=== PATIENT | female | born 1990 | race Caucasian/White ===

== ENCOUNTER 2018-09-06 23:37 | Inpatient (IN) | payer MEDICARE ==
[2018-09-07] MEDS ORDERED: SODIUM CHLORIDE 0.9% 500 ML INFUS.BAG IV ONE (01:29)
--- NOTE | 2018-09-07 01:41 | PDOC ---
Attending Attestation - HPI HPI: 09/07/18 01:44 The patient is a 28 year old female,A0, IUD 3 years ago, with no significant past medical history, who presents to the emergency department s/p syncopal episode around 7:30PM after having 5 days of heavy vaginal bleeding and new onset of nausea, vomiting and abdominal pain this morning. She reports four episodes of NBNB emesis this morning with associated nausea and abdominal pain. She reports abdominal pain is gas-like, intermittent and alleviated with tarah seltzer. She states she fainted around 7:30PM at the grocery store, but reports a customer assisted her to the ground. She states she saw black, but was aware that someone assisted her to the floor. She states it is not usual for her to bleed as heavy as she has been since her IUD placement 3 years ago. The patient denies chest pain, shortness of breath, headache and dizziness. The patient denies fever, chills, diarrhea and constipation. The patient denies dysuria, frequency, urgency and hematuria. Allergies: NKDA Past surgical history: cholecystectomy, gastric sleeve - Physicial Exam PE: 09/07/18 01:44 GENERAL: Awake, alert, and fully oriented, in no acute distress HEAD: No signs of trauma EYES: PERRLA, EOMI, sclera anicteric, conjunctiva clear ENT: Auricles normal inspection, hearing grossly normal, nares patent, oropharynx clear without exudates. Moist mucosa NECK: Normal ROM, supple, no lymphadenopathy, JVD, or masses LUNGS: Breath sounds equal, clear to auscultation bilaterally. No wheezes, and no crackles HEART: Regular rate and rhythm, normal S1 and S2, no murmurs, rubs or gallops ABDOMEN: Soft, nontender, normoactive bowel sounds. No guarding, no rebound. No masses EXTREMITIES: Normal range of motion, no edema. No clubbing or cyanosis. No cords, erythema, or tenderness NEUROLOGICAL: Cranial nerves II through XII grossly intact. Normal speech, normal gait SKIN: Warm, Dry, normal turgor, no rashes or lesions noted. PELVIC: (+) External genitalia normal without lesions. Vaginal vault with minimal blood. Cervix is closed. No cervical motion tenderness. Adnexa are nontender and without masses. - Medical Decision Making 09/07/18 01:44 Documentation prepared by Fatou Wiseman, acting as medical cost consultant for Jocelin Vieira MD <Fatou Wiseman - Last Filed: 09/07/18 01:44> - Resident Resident Name: Yesi Méndez - ED Attending Attestation I have performed the following: I have examined & evaluated the patient, The case was reviewed & discussed with the resident, I agree w/resident's findings & plan - Medical Decision Making 09/07/18 02:21 Pt has an ectopic in the right ovary She has complex free fluid in her pelvis... 09/07/18 02:25 Dr. Corrales is aware. We will admit to INSTRUMENT LENS INSPECTOR; she will be kept NPO and she will get a 4 hr CBC repeat. <Jocelin Vieira - Last Filed: 09/07/18 02:26>
[2018-09-07 01:43] LABS: BASO % 0.3 % (0-2.0); EOS % 1.3 % (0-4.5); HEMATOCRIT 33.7 % (32.4-45.2); HEMOGLOBIN 11.2 GM/dL (10.7-15.3); MCH 30.3 pg (25.7-33.7); MCHC 33.4 g/dl (32.0-36.0); MEAN CELL VOLUME 90.8 fl (80-96); MEAN PLT VOLUME 7.2 fl (7.5-11.1); MONO % 5.9 % (3.8-10.2); NEUT % 71.5 % (42.8-82.8); PLATELET COUNT 268 K/MM3 (134-434); RDW 12.1 % (11.6-15.6); WHITE BLOOD COUNT 12.8 K/mm3 (4.0-10.0)
--- NOTE | 2018-09-07 02:23 | PDOC ---
History of Present Illness <Jocelin Vieira - Last Filed: 09/07/18 02:24> - General History Source: Patient Exam Limitations: No Limitations - History of Present Illness Initial Comments: 09/07/18 01:41 28 year old woman A0 with IUD placed 3 years ago. The patient presents after home positive test this AM, diffuse abdominal "gas-like" pain rated 5-7/10, 4 episodes of NBNB vomiting and syncopal episode at 1930 while at the grocery store, denies any head trauma and notes that another woman in the store helped her to the ground. The patient reports that since her IUD placement she has had vaginal spotting occurring every 1-2months however 2 weeks ago she had heavy vaginal bleeding for 5 days. The patient denies chest pain, shortness of breath, headache and dizziness. The patient denies fever, chills, diarrhea and constipation. The patient denies dysuria, frequency, urgency and hematuria. <Yesi Méndez - Last Filed: 09/07/18 02:47> - General Chief Complaint: Vaginal Bleeding Stated Complaint: VAGINAL BLEEDING PREG, SYNCOPE Time Seen by Provider: 09/07/18 00:25 Past History <Jocelin Vieira - Last Filed: 09/07/18 02:24> - Past Medical History COPD: No - Suicide/Smoking/Psychosocial Hx Smoking History: Never smoked Have you smoked in the past 12 months: No Information on smoking cessation initiated: No Hx Alcohol Use: No Drug/Substance Use Hx: No <Yesi Méndez - Last Filed: 09/07/18 02:47> - Past Medical History Allergies/Adverse Reactions: Allergies Allergy/AdvReac Type Severity Reaction Status Date / Time No Known Allergies Allergy Verified 09/07/18 02:33 Review of Systems - Review of Systems Able to Perform ROS?: Yes Is the patient limited Bhutanese proficient: No Constitutional: No: Chills, Diaphoresis, Fever Respiratory: No: Cough, Orthopnea, Shortness of Breath Cardiac (ROS): No: Chest Pain, Palpitations ABD/GI: Yes: Nausea, Vomiting. No: Constipated, Diarrhea : No: Burning, Dysuria, Hematuria Musculoskeletal: No: Back Pain, Muscle Pain Neurological: No: Headache, Numbness, Tingling <Yesi Méndez - Last Filed: 09/07/18 02:47> *Physical Exam - Vital Signs Last Vital Signs Temp Pulse Resp BP Pulse Ox 98.4 F 76 18 99/48 L 99 09/06/18 23:55 09/06/18 23:55 18 23:55 09/06/18 23:55 09/06/18 23:55 <Jocelin Vieira - Last Filed: 09/07/18 02:24> - Vital Signs Last Vital Signs Temp Pulse Resp BP Pulse Ox 98.4 F 76 18 99/48 L 99 09/06/18 23:55 09/06/18 23:55 09/06/18 23:55 09/06/18 23:55 09/06/18 23:55 - Physical Exam Comments: 09/07/18 02:42 GENERAL: Awake, alert, and fully oriented, in no acute distress HEAD: No signs of trauma, normocephalic, atraumatic EYES:EOMI, sclera anicteric, conjunctiva clear ENT: oropharynx clear without exudates. Moist mucosa NECK: Normal ROM, supple LUNGS: No distress, speaks full sentences, clear to auscultation bilaterally HEART: Regular rate and rhythm, normal S1 and S2, no murmurs, rubs or gallops, peripheral pulses normal and equal bilaterally. ABDOMEN: Soft, + RUQ guarding normoactive bowel sounds. No guarding, no rebound. No masses BACK: No CVA tenderness EXTREMITIES : Normal inspection, Normal range of motion, no edema. No clubbing or cyanosis. NEUROLOGICAL: Cranial nerves II through XII grossly intact. Normal speech, no focal sensorimotor deficits SKIN: Warm, Dry, normal turgor, no rashes or lesions noted PELVIC: closed os, no blood in the vaginal canal, no cervical motion tenderness <Yesi Méndez - Last Filed: 09/07/18 02:47> Moderate Sedation - Procedure Monitoring Vital Signs: Procedure Monitoring Vital Signs Temperature 98.4 F 09/06/18 23:55 Pulse Rate 76 09/06/18 23:55 Respiratory Rate 18 09/06/18 23:55 Blood Pressure 99/48 L 09/06/18 23:55 O2 Sat by Pulse Oximetry (%) 99 09/06/18 23:55 <Jocelin Vieira - Last Filed: 09/07/18 02:24> - Procedure Monitoring Vital Signs: Procedure Monitoring Vital Signs Temperature 98.4 F 09/06/18 23:55 Pulse Rate 76 09/06/18 23:55 Respiratory Rate 18 09/06/18 23:55 Blood Pressure 99/48 L 09/06/18 23:55 O2 Sat by Pulse Oximetry (%) 99 09/06/18 23:55 <Yesi Méndez - Last Filed: 09/07/18 02:47> ED Treatment Course - LABORATORY CBC & Chemistry Diagram: 09/07/18 01:20 09/07/18 01:20 - ADDITIONAL ORDERS Additional order review: 09/07/18 01:20 RBC 3.70 MCV 90.8 MCHC 33.4 RDW 12.1 MPV 7.2 L Neutrophils % 71.5 Lymphocytes % 21.0 Monocytes % 5.9 Eosinophils % 1.3 Basophils % 0.3 <Jocelin Vieira - Last Filed: 09/07/18 02:24> - LABORATORY CBC & Chemistry Diagram: 09/07/18 01:20 09/07/18 01:20 - RADIOLOGY Radiology Studies Ordered: Category Date Time Status TRANSVAGINAL US PREG [US] Stat Ultrasound 09/07/18 01:18 Ordered <Yesi Méndez - Last Filed: 09/07/18 02:47> Medical Decision Making - Medical Decision Making 09/07/18 02:23 28 year old woman A0 with IUD placed 3 years ago. The patient presents after home positive test this AM, diffuse abdominal "gas-like" pain rated 5-7/10, 4 episodes of NBNB vomiting and syncopal episode at 1930 while at the grocery store, denies any head trauma and notes that another woman in the store helped her to the ground. The patient reports that since her IUD placement she has had vaginal spotting occurring every 1-2months however 2 weeks ago she had heavy vaginal bleeding for 5 days. The patient denies chest pain, shortness of breath, headache and dizziness. The patient denies fever, chills, diarrhea and constipation. The patient denies dysuria, frequency, urgency and hematuria. ED Course: Consider ectopic vs IUP vs appendicitis vs gastroenteritis cbc, cmp, t&S, PTT, INR, TVUS, ua,ucx TVUS findings: R sided ectopic, with complex free fluid GRETA Holly made aware of patient, will repeat 4 hour CBC 09/07/18 02:46 [place] [id number] <Yesi Méndez - Last Filed: 09/07/18 02:47> *DC/Admit/Observation/Transfer - Discharge Dispostion Decision to Admit order: Yes <Jocelin Vieira - Last Filed: 09/07/18 02:24> <Yesi Méndez - Last Filed: 09/07/18 02:47> Diagnosis at time of Disposition: Ectopic of ovary - Discharge Dispostion Condition at time of disposition: Guarded
[2018-09-07 02:40] LABS: ALBUMIN 3.1 g/dl (3.4-5.0); ALK PHOS 37 U/L (45-117); ANION GAP 7 MMOL/L (8-16); BILIRUBIN,TOTAL 0.7 mg/dL (0.2-1); BLOOD UREA NITROGEN 10 mg/dL (7-18); CALCIUM 8.1 mg/dL (8.5-10.1); CHLORIDE 105 mmol/L (98-107); CO2 25 mmol/L (21-32); CREATININE 0.5 mg/dL (0.55-1.3); GLUCOSE,RANDOM 92 mg/dL (74-106); POTASSIUM 3.8 mmol/L (3.5-5.1); SGOT/AST 11 U/L (15-37); SGPT/ALT 17 U/L (13-61); SODIUM 137 mmol/L (136-145); TOT PROT 5.8 g/dl (6.4-8.2)
[2018-09-07 02:58] VITALS: BMI 22.6
[2018-09-07 07:19] LABS: BASO % 0.1 % (0-2.0); EOS % 2.3 % (0-4.5); HEMATOCRIT 29.7 % (32.4-45.2); HEMOGLOBIN 9.9 GM/dL (10.7-15.3); LYMPH % 28.9 % (8-40); MCH 30.4 pg (25.7-33.7); MCHC 33.3 g/dl (32.0-36.0); MEAN CELL VOLUME 91.3 fl (80-96); MEAN PLT VOLUME 7.4 fl (7.5-11.1); MONO % 6.6 % (3.8-10.2); NEUT % 62.1 % (42.8-82.8); PLATELET COUNT 235 K/MM3 (134-434); RBC 3.26 M/mm3 (3.60-5.2); RDW 11.8 % (11.6-15.6); WHITE BLOOD COUNT 8.7 K/mm3 (4.0-10.0)
[2018-09-07 07:41] LABS: INR 1.19 (0.83-1.09); PROTHROMBIN TIME (PATIENT) 14.1 SEC (9.7-13.0)
--- NOTE | 2018-09-07 07:53 | HP ---
Past Medical History - Primary Care Physician PCP:: Yordan Corrales - Admission Chief Complaint: abdominal pain, r/o ectopic pregnanvy History of Present Illness: 28 yo f g 2 p1001 with 1 previous c/s , irregular periods , has iud for 3 years , c/o vaginal bleeding 1 week ago for 5 days , no bleeding now, had one episode of fainting like spell yesterday with gasy type pain , now has no pain, no dizziness , hcg 31ooo range, no iup , complex adenexa mass History Source: Patient Limitations to Obtaining History: No Limitations - Past Medical History ...: 1 ...Para: 1 Additional OB History: c/s - Past Surgical History Past Surgical History: Yes: Hx Myomectomy: No Hx Transabdominal Cerclage: No - Smoking History Smoking history: Never smoked Have you smoked in the past 12 months: No - Alcohol/Substance Use Hx Alcohol Use: No - Social History Usual Living Arrangement: Yes: With Spouse History of Recent Travel: No Home Medications - Allergies Allergies/Adverse Reactions: Allergies Allergy/AdvReac Type Severity Reaction Status Date / Time No Known Allergies Allergy Verified 09/07/18 02:33 Review of Systems - Review of Systems Constitutional: reports: No Symptoms Eyes: reports: No Symptoms HENT: reports: No Symptoms Neck: reports: No Symptoms Cardiovascular: reports: No Symptoms Respiratory: reports: No Symptoms Gastrointestinal: reports: Abdominal Pain Genitourinary: reports: No Symptoms Breasts: reports: No Symptoms Reported Musculoskeletal: reports: No Symptoms Integumentary: reports: No Symptoms Neurological: reports: No Symptoms Endocrine: reports: No Symptoms Hematology/Lymphatic: reports: No Symptoms Psychiatric: reports: No Symptoms Physical Exam-PIPE LINER Vital Signs: Vital Signs Temperature 98.4 F 09/07/18 04:44 Pulse Rate 64 09/07/18 04:44 Respiratory Rate 20 09/07/18 04:44 Blood Pressure 95/54 L 09/07/18 04:44 O2 Sat by Pulse Oximetry (%) 100 09/07/18 04:39 Constitutional: Yes: Well Nourished, No Distress, Calm Eyes: Yes: WNL, Conjunctiva Clear, EOM Intact HENT: Yes: WNL, Atraumatic, Normocephalic Neck: Yes: WNL, Supple, Trachea Midline Cardiovascular: Yes: WNL, Regular Rate and Rhythm Respiratory: Yes: WNL, Regular, CTA Bilaterally Gastrointestinal: Yes: WNL ...Rectal Exam: Yes: WNL Renal/: Yes: WNL External Genitalia: Yes: Normal Vaginal Exam: Yes: Normal, Other (iud string seen) Cervix: Yes: Normal Uterus: Yes: Normal Adnexa: Normal: Left, Right Breast(s): Yes: WNL Musculoskeletal: Yes: WNL Extremities: Yes: WNL Edema: No Integumentary: Yes: WNL Neurological: Yes: WNL, Alert, Oriented ...Motor Strength: WNL Psychiatric: Yes: WNL, Alert, Oriented Labs: CBC, BMP 09/07/18 06:50 09/07/18 01:20 Problem List - Problem (1) Tubal ectopic Code(s): O00.109 - UNSPECIFIED TUBAL WITHOUT INTRAUTERINE (2) Ectopic of ovary Code(s): O00.209 - UNSPECIFIED OVARIAN WITHOUT INTRAUTERINE Assessment/Plan possible tubal , patient asymptomatic now , will repeat hcg, cbc , if drop in cbc further advised laparoscopy, possible salpingectomy, iud removal , and all necessary procedure, risks of procedure discussed with patient and her
[2018-09-07 09:05] LABS: URINE APPEARANCE CLEAR; URINE BILIRUBIN NEGATIVE (<2.0 mg/dL); URINE COLOR LTYELLOW; URINE GLUCOSE (UA) NEGATIVE (NEGATIVE); URINE KETONE TRACE (NEGATIVE); URINE LEUK ESTERASE NEGATIVE (NEGATIVE); URINE NITRITE NEGATIVE (NEGATIVE); URINE PROTEIN NEGATIVE (NEGATIVE); URINE UROBILINOGEN NEGATIVE mg/dL (0.2-1.0)
[2018-09-07] MEDS ORDERED: BUPIVACAINE HCL/PF 0.5% (5MG/ML) 10 ML VIAL ONE (13:06)
[2018-09-07] MEDS ORDERED: ONDANSETRON 4 MG/2 ML VIAL IVPUSH PRN ×2 (13:13→14:59)
[2018-09-07] MEDS ORDERED: LACTATED RINGERS SOLUTION 1,000 ML IV SCH (13:15)
[2018-09-07] MEDS ORDERED: PROPOFOL 20 ML ONE (13:22)
[2018-09-07] MEDS ORDERED: MIDAZOLAM HCL 2 MG/2 ML SINGLE DOSE VIAL ONE (13:22)
[2018-09-07] MEDS ORDERED: SUCCINYLCHOLINE CHLORIDE 200 MG/10 ML VIAL ONE (13:22)
[2018-09-07] MEDS ORDERED: ceFAZolin SODIUM 1 GM VIAL IVPB ONE (13:45)
[2018-09-07] MEDS ORDERED: ceFAZolin SODIUM 1 GM VIAL ONE (13:47)
[2018-09-07] MEDS ORDERED: DEXAMETHASONE SOD PHOSPHATE 4 MG/1 ML VIAL ONE (13:52)
[2018-09-07] MEDS ORDERED: DESFLURANE GAS 240 ML BOTTLE IH ONE (13:53)
[2018-09-07] MEDS ORDERED: KETOROLAC TROMETHAMINE 30 MG/1 ML VIAL ONE (14:17)
[2018-09-07] MEDS ORDERED: BUPIVACAINE HCL/PF (5 MG/ML) 30 ML VIAL IJ ONE (14:54)
[2018-09-07] MEDS ORDERED: oxyCODONE HCL 5 MG TABLET PO PRN (14:59)
[2018-09-07] MEDS ORDERED: IBUPROFEN 600 MG TABLET (FP) PO PRN (14:59)
[2018-09-07] MEDS ORDERED: IBUPROFEN 800 MG/8 ML IJ IVPB PRN (14:59)
[2018-09-07] MEDS ORDERED: ELECTROLYTE-148 SOLN 1,000 ML IV SCH (15:15)
[2018-09-07] MEDS ORDERED: ACETAMINOPHEN 325 MG TABLET (FP) PO PRN (15:24)
--- NOTE | 2018-09-07 15:25 | OP ---
Operative Note - Note: Operative Date: 09/07/18 Pre-Operative Diagnosis: Tubal Operation: Laparoscopic right salpingectomy Findings: as dictated Implants: none Post-Operative Diagnosis: Same as Pre-op Surgeon: Yordan Corrales [employer]als Hand Engraver: Sayra Barr Anesthesiologist/WATER AEROBICS INSTRUCTOR: Hanny Cowan Anesthesia: General, Local (10cc .25% Marcaine injected at completion of case) Specimens Removed: right tube and missed products of conception Estimated Blood Loss (mls): 20 (ml) Drains, Volume Out (mls): 400 (ml clear urine ) Fluid Volume Replaced (mls): 900 (ml LR) Operative Report Dictated: Yes
--- NOTE | 2018-09-07 15:30 | SURG ---
Surgery Dopster Note Dopster: Sayra Barr PA-C (Suzy) Date of Service: 09/07/18 Diagnosis: Tubal Procedure: Operation: Laparoscopic right salpingectomy I was present for the entirety of the operative procedure. For further detail, please refer to operative report.
--- NOTE | 2018-09-07 18:11 | OP ---
DATE OF OPERATION: 09/07/2018 PREOPERATIVE DIAGNOSIS: Rule out ectopic . POSTOPERATIVE DIAGNOSIS: Right tubal ectopic . PROCEDURE: Dilation and curettage, removal of the intrauterine device, laparoscopy and right salpingectomy and lysis of pelvic adhesions. SURGEON: Yolette Corrales M.D. SURGERY TEACHER: Malena Whalen ANESTHESIA: General. ANESTHESIOLOGIST: Hanny Cowan D.O. INTRAOPERATIVE BLOOD LOSS: 25 mL. DESCRIPTION OF PROCEDURE: Patient was taken to operating room, under adequate general anesthesia, placed in dorsal lithotomy position, examination under anesthesia revealed external genitalia to be normal, vagina was normal, cervix was clean no gross lesions. IUD string was seen and grasped with a Angela clamp and removed. Then with cervix slightly dilated with Hegar dilator with a smooth curet, uterine cavity gently curetted. A small amount of tissue was obtained then. Patient was prepped and draped for . A small infraumbilical incision was made under laparoscopic direct vision a 5-mm trocar was introduced to the umbilical area. There were multiple omental adhesions to the anterior abdominal wall which gently passed through above the adhesion forms, and then scope was introduced and then abdomen was insufflated, then under direct vision a 5-mm trocar was introduced to the right hypogastric area, 10-mm to the left hypogastric area. There were several omental peritoneal adhesions which made visualization very difficult. These adhesions first were cauterized with the LigaSure cautery and cut, and there were some bowel also adherent to the right pelvic sidewall which was obscuring the location of the ectopic. These were meticulously lysed with a cautery and removed. The adhesions were lysed and , and bowels were pushed up. Patient was placed in dorsal lithotomy position. Then evaluation of pelvic organ showed the uterus was normal size, bladder was normal. Left tube and ovary were normal. Right ovary was normal. The left tube had a large ectopic with bleeding from the fimbriated end, leaking from the fimbriated end, and the fimbriated end was grasped with a grasper and then along the middle salpinx with bipolar cautery, cauterized and cut until the right tube was removed and then put in the EndoCatch, and EndoCatch was brought out through the 10-mm trocar. Pelvic cavity at this time irrigated, no active bleeding was seen. Bowels were examined, and they appeared to be normal. Then the 10-mm incision fascia was closed with interrupted suture of 0 Vicryl and then umbilical area and 5-mm trocar closed with interrupted suture of 3-0 Vicryl, and then skin was closed with Dermabond. Patient tolerated procedure well, left the OR in good condition. YOLETTE CORRALES M.D. [id number]
[2018-09-08 07:46] LABS: HEMOGLOBIN 8.4 GM/dL (10.7-15.3); MCH 30.4 pg (25.7-33.7); MCHC 33.4 g/dl (32.0-36.0); MEAN CELL VOLUME 91.1 fl (80-96); MEAN PLT VOLUME 7.7 fl (7.5-11.1); PLATELET COUNT 191 K/MM3 (134-434); RBC 2.74 M/mm3 (3.60-5.2); RDW 11.6 % (11.6-15.6); WHITE BLOOD COUNT 8.4 K/mm3 (4.0-10.0)
[2018-09-08 08:21] LABS: ANION GAP 6 MMOL/L (8-16); BLOOD UREA NITROGEN 4 mg/dL (7-18); CALCIUM 7.7 mg/dL (8.5-10.1); CHLORIDE 108 mmol/L (98-107); CO2 24 mmol/L (21-32); CREATININE 0.4 mg/dL (0.55-1.3); GLUCOSE,RANDOM 75 mg/dL (74-106); POTASSIUM 3.7 mmol/L (3.5-5.1); SODIUM 138 mmol/L (136-145)
--- NOTE | 2018-09-08 13:04 | DS ---
Physical Exam-SETTER MACHINE Vital Signs: Vital Signs Temperature 99.4 F 09/08/18 09:00 Pulse Rate 63 09/08/18 09:00 Respiratory Rate 20 09/08/18 09:00 Blood Pressure 91/54 L 09/08/18 09:00 O2 Sat by Pulse Oximetry (%) 100 09/08/18 09:00 Constitutional: Yes: Well Nourished, No Distress, Calm Eyes: Yes: WNL, Conjunctiva Clear, EOM Intact HENT: Yes: WNL, Atraumatic, Normocephalic Neck: Yes: WNL, Supple, Trachea Midline Cardiovascular: Yes: WNL, Regular Rate and Rhythm Respiratory: Yes: WNL, Regular, CTA Bilaterally Gastrointestinal: Yes: WNL ...Rectal Exam: Yes: WNL Renal/: Yes: WNL Breast(s): Yes: WNL Musculoskeletal: Yes: WNL Extremities: Yes: WNL Edema: No Integumentary: Yes: WNL Wound/Incision: Yes: Clean/Dry, Well Approximated, Sutures Intact Neurological: Yes: WNL, Alert, Oriented ...Motor Strength: WNL Psychiatric: Yes: WNL, Alert, Oriented Labs: CBC, BMP 09/08/18 07:35 09/08/18 07:35 Discharge Summary Reason For Visit: OVARIAN ECTOPIC (MATERNITY FL Current Active Problems Ectopic of ovary (Acute) Tubal ectopic (Acute) UTI (urinary tract infection) (Acute) Procedures: Principal: laparoscopic RT salpingectomy. lysis of pelvic adhesions Other Procedures: dilation and curettage, removal of iud Condition: Good - Instructions Diet, Activity, Other Instructions: regular diet, follow up [facility] care 2 weeks, if fever, severe pain, heavy vaginal bleeding call Referrals: Yordan Corrales MD [Staff Physician] - - Home Medications Comprehensive Discharge Medication List: Ambulatory Orders Ibuprofen [Motrin -] 600 mg PO QID #28 tablet 09/08/18 Nitrofurantoin Monohyd/M-Cryst [Macrobid -] 100 mg PO BID #14 capsule 09/08/18
--- NOTE | 2018-09-08 13:09 | PN ---
Progress Note (short form) - Note Progress Note: pod 1, no c/o passing gas, tolerated regular diet, ambulating, no pain abdomen soft, non tender, no distension, ,BS present no calf tenderness plan d/c home ,follow up [facility] care 2 weeks , instruction given Problem List - Problems (1) Tubal ectopic Code(s): O00.109 - UNSPECIFIED TUBAL WITHOUT INTRAUTERINE (2) Ectopic of ovary Code(s): O00.209 - UNSPECIFIED OVARIAN WITHOUT INTRAUTERINE
[2018-09-08 15:40] VITALS: BP 103/59; PULSE 71; TEMP 98.4
--- NOTE | 2018-09-10 15:51 | PATH ---
Surgical Pathology Report Patient Name: GREG LEON [facility]. Rec. #: [id number] /Age/Gender: 1990 (Age: 28) / F Account: [id number] Location: [facility] OBS/PULVERIZING AND SIFTING OPERATOR Taken: 09/07/2018 Received: 09/09/2018 Reported: 09/10/2018 Physicians: Yordan Corrales M.D. Specimen(s) Received A: IUD B: ENDOMETRIAL CURETTINGS C: RIGHT FALLOPIAN TUBE, ECTOPIC Clinical History Ectopic Final Diagnosis A. INTRAUTERINE DEVICE (IUD), REMOVAL: FOREIGN BODY MATERIAL CONSISTENT WITH INTRAUTERINE DEVICE (IUD). MACROSCOPIC DIAGNOSIS. B. ENDOMETRIAL CURETTINGS, DILATION AND CURETTAGE: FRAGMENTS OF DECIDUA, GESTATIONAL ENDOMETRIUM, AND BENIGN CERVICAL TISSUE. C. FALLOPIAN TUBE, RIGHT, LAPAROSCOPIC SALPINGECTOMY: CHORIONIC VILLI IN A BACKGROUND OF HEMORRHAGE PRESENT WITHIN THE FALLOPIAN TUBE, CONSISTENT WITH ECTOPIC . Electronically Signed Marie Blackburn M.D. Gross Description A. Received fresh labeled "removed IUD," is a 3.2 cm in length white, T-shaped device with attached string, consistent with an IUD. No soft tissue is present. No sections are submitted, gross only. B. Received in formalin labeled "endometrial curettings," is a 3.0 x 2.2 x 0.4 cm aggregate of veloz-brown soft tissue fragments admixed with mucus and blood clot. The formalin is filtered and the specimen is entirely submitted in 2 cassettes. C. Received in formalin labeled "right fallopian tube," is a 5 cm in length and dilated, fimbriated fallopian tube. The outer surface is veloz hicks with a focal large defect. There is blood clot and villous tissue attached to the defect. No somatic tissue is identified. Sectioning of the fallopian tube reveals a dilated lumen containing red-brown blood clot. Contract Law Specialist sections are submitted in 3 cassettes as follows: 1-villous tissue; 2-fimbria; 3-cross section of fallopian tube. /09/09/2018 saudi09/09/2018
== END 2018-09-08 13:30 | disposition home or self-care (01) | DRG 545 ==
LOC: JER 23:37 → JERBED 09-07 02:25 → J3W 09-07 03:55
PROVIDERS: ADMIT Obstetrics & Gynecology; ATTEND Obstetrics & Gynecology
PROC: 0UT54ZZ Resection of Right Fallopian Tube, Percutaneous Endoscopic Approach (ICD-10-PCS; principal; 2018-09-07 13:30)
PROC: 10D27ZZ Extraction of Products of Conception, Ectopic, Via Natural or Artificial Opening (ICD-10-PCS; 2018-09-07 13:30)
PROC: 0DNW4ZZ Release Peritoneum, Percutaneous Endoscopic Approach (ICD-10-PCS; 2018-09-07 13:30)
DX: O00.111 Right tubal pregnancy with intrauterine pregnancy (principal); N39.0 Urinary tract infection, site not specified; Z30.432 Encounter for removal of intrauterine contraceptive device; N73.6 Female pelvic peritoneal adhesions (postinfective)
CPT/HCPCS: 36415; 76817-TC; 80048; 80053; 81003; 84702; 85025; 85027; 85610; 85730; 86850; 86900; 86901; 87086; 87186; 88300-TC; 88305-TC; 94760; 99285-25

== ENCOUNTER 2019-01-30 10:30 | Emergency (ER) | payer SELFPAY | END 2019-01-30 12:40 | disposition home or self-care (01) | LOC: JER 10:30 ==

== ENCOUNTER 2019-03-09 17:30 | Emergency (ER) | payer OTHER ==
[2019-03-09 17:35] VITALS: BP 98/53; PULSE 77; TEMP 98.2; BMI 19.6
[2019-03-09] MEDS ORDERED: ACETAMINOPHEN 325 MG TABLET (FP) PO ONE (17:35)
--- NOTE | 2019-03-09 17:36 | PDOC ---
Rapid Medical Evaluation Chief Complaint: Pain, Acute Time Seen by Provider: 03/09/19 17:32 Medical Evaluation: Allergies Allergy/AdvReac Type Severity Reaction Status Date / Time No Known Allergies Allergy Verified 01/30/19 10:41 03/09/19 17:32 The patient is a 28 y/o F who presents with lower abdominal cramping and pain since 3pm. Pt is 13 weeks . LMP 12/08/18. No bleeding reported. Denies frequency, urgency, hematuria, n/v/d Exam: ambulatory, nad Orders: labs, US Pt to proceed to the ER for further evaluation Discharge Disposition - Diagnosis Abdominal pain affecting - Discharge Dispostion Condition at time of disposition: Stable - Referrals - Patient Instructions - Post Discharge Activity
[2019-03-09] MEDS ORDERED: ACETAMINOPHEN 325 MG TABLET (FP) ONE (18:09)
--- NOTE | 2019-03-09 18:30 | PDOC ---
History of Present Illness - General Chief Complaint: Pain, Acute Stated Complaint: PELVIC PAIN/13 WKS Time Seen by Provider: 03/09/19 17:32 History Source: Patient - History of Present Illness Timing/Duration: reports: resolved prior to arrival Past History - Past Medical History Allergies/Adverse Reactions: Allergies Allergy/AdvReac Type Severity Reaction Status Date / Time No Known Allergies Allergy Verified 01/30/19 10:41 Home Medications: Ambulatory Orders Metoclopramide HCl [Reglan -] 10 mg PO BID PRN #14 tablet 01/30/19 Anemia: No Asthma: No Cancer: No Cardiac Disorders: No CVA: No COPD: No CHF: No Dementia: No Diabetes: No GI Disorders: No Disorders: No HTN: No Hypercholesterolemia: No Liver Disease: No Seizures: No Thyroid Disease: No - Surgical History Abdominal Surgery: No Appendectomy: No Cardiac Surgery: No Cholecystectomy: No Lung Surgery: No Neurologic Surgery: No Orthopedic Surgery: No - Reproductive History (#): 2 Para: 1 Ectopic : Yes Therapeutic (s) & number: No Spontaneous : 0 - Immunization History Immunization Up to Date: No - Suicide/Smoking/Psychosocial Hx Smoking History: Never smoked Have you smoked in the past 12 months: No Information on smoking cessation initiated: No Hx Alcohol Use: No Drug/Substance Use Hx: No Review of Systems - Review of Systems Constitutional: No: Chills, Fever ABD/GI: Yes: Abdominal cramping. No: Nausea, Vomiting : No: Dysuria, Flank Pain *Physical Exam - Vital Signs Last Vital Signs Temp Pulse Resp BP Pulse Ox 98.2 F 77 18 98/53 L 98 03/09/19 17:33 03/09/19 17:33 03/09/19 17:33 03/09/19 17:33 03/09/19 17:33 - Physical Exam General Appearance: Yes: Appropriately Dressed. No: Apparent Distress HEENT: positive: Normal Voice Neck: positive: Supple Respiratory/Chest: negative: Respiratory Distress Gastrointestinal/Abdominal: positive: Soft. negative: Tender Musculoskeletal: negative: CVA Tenderness Integumentary: positive: Dry, Warm Neurologic: positive: Fully Oriented, Alert, Normal Mood/Affect ED Treatment Course - LABORATORY CBC & Chemistry Diagram: 03/09/19 17:34 Medical Decision Making - Medical Decision Making 03/09/19 18:28 28 yo (s/p ectopic-L salpingectomy), 13 weeks w/ confirmed IUP on multiple ultrasounds per patient, no issues w/ so far and scheduled for next ultrasound in several days, here because she started having lower abdominal cramping after receiving a stressful phone call from her job today. States pain has since subsided. No vaginal bleed, dysuria, nausea, vomiting, fever or chills See exam Abd pain in 1st 2nd trimester Since resolved Confirmed IUP on multiple US per pt No vag bleed, dysuria, n/v Well carson w/ NT abd -ua/ucx pending 03/09/19 19:01 UA neg. Pt remains pain free and well carson on rpt evaluation. BP 98/53 at triage , 110/60 on rpt. Stable for dc w/ [employer] f/u. Reasons to return d/w pt *DC/Admit/Observation/Transfer Diagnosis at time of Disposition: Abdominal pain affecting - Discharge Dispostion Disposition: HOME Condition at time of disposition: Stable - Referrals - Patient Instructions Additional Instructions: Your urine was negative for infection Please continue to follow up with your [employer] Return to ED for worsening of symptoms - Post Discharge Activity
[2019-03-09 18:56] LABS: URINE APPEARANCE CLEAR; URINE BILIRUBIN NEGATIVE (NEGATIVE); URINE COLOR YELLOW; URINE GLUCOSE (UA) NEGATIVE (NEGATIVE); URINE KETONE NEGATIVE (NEGATIVE); URINE LEUK ESTERASE NEGATIVE (NEGATIVE); URINE NITRITE NEGATIVE (NEGATIVE); URINE PROTEIN NEGATIVE (NEGATIVE); URINE UROBILINOGEN 0.2 mg/dL (0.2-1.0)
[2019-03-09 20:04] LABS: ALBUMIN 2.9 g/dl (3.4-5.0); BILIRUBIN,TOTAL 0.4 mg/dL (0.2-1); CALCIUM 8.3 mg/dL (8.5-10.1); CREATININE 0.6 mg/dL (0.55-1.3); TOT PROT 6.3 g/dl (6.4-8.2)
== END 2019-03-09 19:15 | disposition home or self-care (01) ==
LOC: JER 17:30
DX: O26.891 Other specified pregnancy related conditions, first trimester (principal); R10.2 Pelvic and perineal pain; Z3A.13 13 weeks gestation of pregnancy
CPT/HCPCS: 36415; 80053; 81003; 84702; 87086; 99281-25

== ENCOUNTER 2019-09-07 07:30 | Inpatient (IN) | payer OTHER ==
[~2019-09-07 07:30] MED LIST: CITRIC ACID/SODIUM CITRATE 30 ML UNIT-DOSE CUP PO ONE; ELECTROLYTE-148 SOLN 1,000 ML IV ONE
[2019-09-07 08:16] VITALS: BMI 23.6
[2019-09-07] MEDS ORDERED: ELECTROLYTE-148 SOLN 1,000 ML IV SCH (08:30)
[2019-09-07] MEDS ORDERED: morphine SULFATE/PF 0.5 MG/ML (2cc Syringe - QUVA) ONE (08:45)
[2019-09-07] MEDS ORDERED: ceFAZolin SODIUM 1 GM VIAL ONE (08:49)
[2019-09-07] MEDS ORDERED: SODIUM CHLORIDE 0.9% P/F 10 ML VIAL IJ ONE (08:49)
--- NOTE | 2019-09-07 08:51 | HP ---
Past Medical History - Primary Care Physician PCP:: Yordan Corrales - Admission Chief Complaint: 39 weeks, previous c/s, for repeat c/s History of Present Illness: 29 yo f 1,39 weeks, with 1 previous c/s for repeat c/s, risks has discussed with patient , declined BTL, cx clp vx -3 mi, fh cat 1 , reactive History Source: Patient Limitations to Obtaining History: No Limitations - Past Medical History ...: 3 ...Para: 1 ...Term: 1 ...: 0 ...Spon : 1 ...Induced : 0 ...EDC by Sono: 09/07/19 - Past Surgical History Past Surgical History: Yes: Hx Myomectomy: No Hx Transabdominal Cerclage: No - Smoking History Smoking history: Never smoked Have you smoked in the past 12 months: No - Alcohol/Substance Use Hx Alcohol Use: No - Social History Usual Living Arrangement: Yes: With Spouse History of Recent Travel: Yes Home Medications - Allergies Allergies/Adverse Reactions: Allergies Allergy/AdvReac Type Severity Reaction Status Date / Time No Known Allergies Allergy Verified 09/07/19 07:59 - Home Medications Home Medications: Ambulatory Orders Vits96/Iron Fum/Folic [ Tablet] 1 each PO DAILY 09/07/19 Review of Systems - Review of Systems Constitutional: reports: No Symptoms Eyes: reports: No Symptoms HENT: reports: No Symptoms Neck: reports: No Symptoms Physical Exam - Maternity Vital Signs: Vital Signs Temperature 98.6 F 09/07/19 08:00 Pulse Rate 81 09/07/19 08:00 Respiratory Rate 18 09/07/19 08:00 Blood Pressure 108/72 09/07/19 08:00 O2 Sat by Pulse Oximetry (%)
[2019-09-07] MEDS ORDERED: OXYTOCIN 20 UNITS in 0.9% NS 40 UNIT/2,000 ML INFUS.BAG IV ONE (08:52)
[2019-09-07] MEDS ORDERED: KETOROLAC TROMETHAMINE 30 MG/1 ML VIAL ONE (09:28)
[2019-09-07] MEDS ORDERED: diphenhydrAMINE HCL 25 MG CAPSULE (FP) PO PRN (10:08)
[2019-09-07] MEDS ORDERED: IBUPROFEN 800 MG/8 ML IJ IVPB PRN (10:08)
[2019-09-07] MEDS ORDERED: WITCH HAZEL 50% (TUCKS) 40 PAD/JAR PAD TP PRN (10:08)
[2019-09-07] MEDS ORDERED: BENZOCAINE 28 GM HEMORRHOIDAL OINTMENT PR PRN (10:08)
[2019-09-07] MEDS ORDERED: BENZOCAINE 20% 57 GM BOTTLE TP PRN (10:08)
[2019-09-07] MEDS ORDERED: METHYLERGONOVINE MALEATE 0.2 MG/1 ML AMP IM PRN (10:08)
[2019-09-07] MEDS ORDERED: oxyCODONE HCL 5 MG TABLET PO PRN ×2 (10:08)
--- NOTE | 2019-09-07 10:12 | OP ---
Operative Note - Note: Operative Date: 09/07/19 Pre-Operative Diagnosis: 39 weeks, previous c/s , request of repeat c/ s Operation: repeat LST c/s Findings: live baby boy , 05/17 Surgeon: Yordan Corrales Hogshead Press Operator: Hans Lyman Anesthesia: Spinal Specimens Removed: placenta Estimated Blood Loss (mls): 500 Drains & Tubes with Location: martinez Drains, Volume Out (mls): 100 Blood Volume Replaced (mls): 0 Operative Report Dictated: Yes
[2019-09-07] MEDS ORDERED: OXYTOCIN 20 UNITS in 0.9% NS 20 UNIT/1,000 ML INFUS.BAG IV SCH (10:15)
[2019-09-07] MEDS ORDERED: IBUPROFEN 600 MG TABLET (FP) PO PRN (10:18)
[2019-09-07] MEDS ORDERED: ONDANSETRON 4 MG/2 ML VIAL IVPUSH PRN (10:18)
--- NOTE | 2019-09-07 13:00 | OP ---
DATE OF OPERATION: 09/07/2019 PREOPERATIVE DIAGNOSIS: 39 weeks, previous section, request of repeat section. POSTOPERATIVE DIAGNOSIS: 39 weeks, previous section, request of repeat section. PROCEDURE: Repeat low segment transverse section. SURGEON: Yordan Corrales MD FOOD PRODUCTS TESTER: FRANK Silva ANESTHESIA: Vahid Joe MD, spinal. ESTIMATED BLOOD LOSS: 500 mL. DESCRIPTION OF PROCEDURE: The patient was taken to the operating room under adequate spinal anesthesia. Abdomen and perineum were prepped and draped. Pfannenstiel abdominal skin incision was made. Abdominal wall was cut layer by layer until the peritoneum was exposed and incised. Upon entering the abdominal cavity, lower uterine segment was identified. Uterovesical fold of peritoneum established. Bladder was pushed down. Then with the lower blade of the [place] retractor in the pelvis, a low transverse uterine incision was made. Amniotic sac was entered. Clear fluid. Incision was extended laterally with bandage scissors and then head delivered from occiput posterior position. Live baby girl was delivered without any difficulty. Apgars 9, 9. Placenta was delivered manually. Uterine cavity was cleaned of all remaining tissue. Uterine incision was closed in 2 layers, the 1st layer with 1 Biosyn continuous suture, the 2nd layer with 1 Vicryl imbricating the 1st layer. There was a small hematoma at the left C section angle, which was a suture of the 2-0 interrupted Biosyn was placed, and hemostasis was established. Then bladder flap was closed with 0 Biosyn continuous suture. Pelvic cavity several times irrigated. No active bleeding was seen. All of the lap pad, sponge, and instrument counts were correct. Urine was clear. Both ovaries and tubes were checked. Both ovaries were normal. Then the peritoneum was closed with 0 Biosyn continuous suture. Muscles were brought together with interrupted sutures of 0 Biosyn. Fascia was closed with 0 Biosyn continuous suture, subcutaneous fat interrupted suture of 0 Biosyn, and the skin was closed with 3-0 Vicryl subcuticular continuous suture. Patient tolerated procedure well. Left the OR in good condition. Hina [id number]
[2019-09-07] MEDS: CEFAZOLIN 1 GM/D5W 1 GM/50 ML BAG IVPB SCH (17:16)
[2019-09-07] MEDS ORDERED: DEXTROSE 5%-LACTATED RINGERS 1,000 ML IV SCH (18:15)
[2019-09-08] MEDS: CEFAZOLIN 1 GM/D5W 1 GM/50 ML BAG IVPB SCH (01:19)
[2019-09-08] MEDS: IBUPROFEN 600 MG TABLET (FP) PO PRN ×4 (01:36→20:24)
[2019-09-08] MEDS: ACETAMINOPHEN 325 MG TABLET (FP) PO PRN ×4 (01:37→20:24)
[2019-09-08 08:44] LABS: BASO % 0.2 % (0-2.0); EOS % 1.6 % (0-4.5); HEMATOCRIT 30.6 % (32.4-45.2); HEMOGLOBIN 10.2 GM/dL (10.7-15.3); LYMPH % 13.8 % (8-40); MCH 27.4 pg (25.7-33.7); MCHC 33.1 g/dl (32.0-36.0); MEAN CELL VOLUME 82.5 fl (80-96); MEAN PLT VOLUME 8.7 fl (7.5-11.1); NEUT % 77.4 % (42.8-82.8); PLATELET COUNT 226 K/MM3 (134-434); RBC 3.71 M/mm3 (3.60-5.2); RDW 13.5 % (11.6-15.6); WHITE BLOOD COUNT 8.5 K/mm3 (4.0-10.0)
[2019-09-08] MEDS ORDERED: BISACODYL 10 MG SUPP.RECT RC PRN (10:08)
[2019-09-08] MEDS: ENOXAPARIN NA (PORCINE) 40 MG/0.4 ML DISP.SYRIN SQ SCH (10:13)
--- NOTE | 2019-09-08 13:05 | PN ---
Progress Note (short form) - Note Progress Note: POD1 s/p csection under spinal and DM. Pt has no pain, no back ache, no HERNANDEZ. Ambulating without difficulty. No anesthetic issues/complications noted.
--- NOTE | 2019-09-08 17:09 | PN ---
Post Progress Note - Subjective Subjective: Patient without acute complaints. Reports tolerating oral intake without nausea or vomiting. Ambulating without dizziness. Denies fevers or chills. Pain well controlled with oral pain medication. Pumping/breast feeding without issue. Passing flatus, no BM. Post Day: 1 Type of Delivery: Repeat C/S Vital Signs: Vital Signs Temperature 98.0 F 09/08/19 10:00 Pulse Rate 58 L 09/08/19 10:00 Respiratory Rate 18 09/08/19 10:00 Blood Pressure 112/66 09/08/19 10:00 O2 Sat by Pulse Oximetry (%) 98 09/07/19 11:15 Breast Exam: Yes: Soft Uterus: Yes: Fundus Firm, Fundus below umbilicus Incision: Yes: Dressing dry and intact Abdomen/GI: Yes: Abdomen soft, Tolerating PO Lochia: Yes: Rubra Extremities: Yes: Calves non-tender Perineum: Yes: Intact Activity: Ambulating - Labs Labs: CBC WBC 8.5 K/mm3 (4.0-10.0) 09/08/19 08:15 RBC 3.71 M/mm3 (3.60-5.2) 09/08/19 08:15 Hgb 10.2 GM/dL (10.7-15.3) L 09/08/19 08:15 Hct 30.6 % (32.4-45.2) L 09/08/19 08:15 MCV 82.5 fl (80-96) 09/08/19 08:15 MCH 27.4 pg (25.7-33.7) 09/08/19 08:15 MCHC 33.1 g/dl (32.0-36.0) 09/08/19 08:15 RDW 13.5 % (11.6-15.6) 09/08/19 08:15 Plt Count 226 K/MM3 (134-434) 09/08/19 08:15 MPV 8.7 fl (7.5-11.1) 09/08/19 08:15 Absolute Neuts (auto) 6.6 K/mm3 (1.5-8.0) 09/08/19 08:15 Neutrophils % 77.4 % (42.8-82.8) D 09/08/19 08:15 Lymphocytes % 13.8 % (8-40) D 09/08/19 08:15 Monocytes % 7.0 % (3.8-10.2) 09/08/19 08:15 Eosinophils % 1.6 % (0-4.5) 09/08/19 08:15 Basophils % 0.2 % (0-2.0) 09/08/19 08:15 Nucleated RBC % 0 % (0-0) 09/08/19 08:15 Assessment/Plan POD#1 s/p repeat LTC/S doing well, stable, afebrile. Asymptomatic for anemia. Post op care reviewed. Continue routine care. Ambulation encouraged Advance diet as tolerated.
[2019-09-08] MEDS: SIMETHICONE 80 MG TAB.CHEW (FP) PO PRN ×2 (17:54→20:24)
[2019-09-09] MEDS: SIMETHICONE 80 MG TAB.CHEW (FP) PO PRN ×5 (03:53→22:22)
[2019-09-09] MEDS: ACETAMINOPHEN 325 MG TABLET (FP) PO PRN ×5 (03:53→22:22)
[2019-09-09] MEDS: IBUPROFEN 600 MG TABLET (FP) PO PRN ×5 (03:54→22:22)
[2019-09-09] MEDS: ENOXAPARIN NA (PORCINE) 40 MG/0.4 ML DISP.SYRIN SQ SCH (09:01)
--- NOTE | 2019-09-09 19:49 | PN ---
Post Progress Note - Subjective Subjective: Patient without acute complaints. Reports tolerating oral intake without nausea or vomiting. Ambulating without dizziness. Denies fevers or chills. Pain well controlled with oral pain medication. Pumping/breast feeding without issue. Passing flatus, and had BM. Post Day: 2 Type of Delivery: Repeat C/S Vital Signs: Vital Signs Temperature 98.2 F 09/09/19 10:00 Pulse Rate 68 09/09/19 10:00 Respiratory Rate 09/09/19 10:00 Blood Pressure 105/60 09/09/19 10:00 O2 Sat by Pulse Oximetry (%) 98 09/07/19 11:15 Breast Exam: Yes: Soft Uterus: Yes: Fundus Firm, Fundus below umbilicus, Non-tender Incision: Yes: Sutures intact Abdomen/GI: Yes: Abdomen soft, Passing flatus, Tolerating PO Lochia: Yes: Rubra Lochia, amount: Small Extremities: Yes: Calves non-tender Perineum: Yes: Intact Activity: Ambulating - Labs Labs: CBC WBC 8.5 K/mm3 (4.0-10.0) 09/08/19 08:15 RBC 3.71 M/mm3 (3.60-5.2) 09/08/19 08:15 Hgb 10.2 GM/dL (10.7-15.3) L 09/08/19 08:15 Hct 30.6 % (32.4-45.2) L 09/08/19 08:15 MCV 82.5 fl (80-96) 09/08/19 08:15 MCH 27.4 pg (25.7-33.7) 09/08/19 08:15 MCHC 33.1 g/dl (32.0-36.0) 09/08/19 08:15 RDW 13.5 % (11.6-15.6) 09/08/19 08:15 Plt Count 226 K/MM3 (134-434) 09/08/19 08:15 MPV 8.7 fl (7.5-11.1) 09/08/19 08:15 Absolute Neuts (auto) 6.6 K/mm3 (1.5-8.0) 09/08/19 08:15 Neutrophils % 77.4 % (42.8-82.8) D 09/08/19 08:15 Lymphocytes % 13.8 % (8-40) D 09/08/19 08:15 Monocytes % 7.0 % (3.8-10.2) 09/08/19 08:15 Eosinophils % 1.6 % (0-4.5) 09/08/19 08:15 Basophils % 0.2 % (0-2.0) 09/08/19 08:15 Nucleated RBC % 0 % (0-0) 09/08/19 08:15 Assessment/Plan POD#2 s/p repeat LTC/S doing well, stable, afebrile. Asymptomatic for anemia. Post op care reviewed. Continue routine care. Ambulation encouraged Advance diet as tolerated. Discharge instructions reviewed.
--- NOTE | 2019-09-09 19:52 | DS ---
Physical Exam-SENIOR FINANCIAL ACCOUNTANT Vital Signs: Vital Signs Temperature 98.2 F 09/09/19 10:00 Pulse Rate 68 09/09/19 10:00 Respiratory Rate 09/09/19 10:00 Blood Pressure 105/60 09/09/19 10:00 O2 Sat by Pulse Oximetry (%) 98 09/07/19 11:15 Constitutional: Yes: Well Nourished, No Distress, Calm Eyes: Yes: WNL, Conjunctiva Clear, EOM Intact HENT: Yes: WNL, Atraumatic, Normocephalic Neck: Yes: WNL, Supple, Trachea Midline Cardiovascular: Yes: WNL, Regular Rate and Rhythm Respiratory: Yes: WNL, Regular, CTA Bilaterally Gastrointestinal: Yes: WNL, Normal Bowel Sounds, Soft ...Rectal Exam: Yes: Deferred Renal/: Yes: WNL Internal Exam Deferred: Yes ....Post : Yes: Uterus firm, Uterus non-tender, Slight lochia rubra Breast(s): Yes: WNL Musculoskeletal: Yes: WNL Extremities: Yes: WNL Edema: No Integumentary: Yes: WNL Wound/Incision: Yes: Clean/Dry, Well Approximated, Sutures Intact, Steri Strips , Open to air Neurological: Yes: WNL, Alert, Oriented ...Motor Strength: WNL Psychiatric: Yes: WNL, Alert, Oriented Labs: CBC, BMP 09/08/19 08:15 Delivery - Delivery Section: Repeat, Low Flap Transverse Type of Anesthesia: Spinal Episiotomy/Laceration: None EBL (cc): 500 Delivery, Single - Stages of Labor Date of Delivery: 09/07/19 Time of Delivery: 09:21 Time Placenta Delivered: 09:22 Placenta: Yes: Expressed, Normal Configuration - Condition of Test Development Engineer/Descriptive Catalog Librarian Present: Yes Name: Aziza Cortes Gender: Male Weight: 3.629 kg Position: OP Total Hours ROM (Hrs/Mins): 0/2 - 1 Minute Total Score: 8 5 Minutes Total Score: 9 - Feeding Plan Initial Plan: Elected not to breastfeed exclusively throughout hospitalization Benefits of Exclusively reinforced: Yes Discharge Summary Problems reviewed: Yes Reason For Visit: C SECTION Prior C/S Procedures: Principal: Repeat LT C/S Hospital Course: Normal postop and recovery. Goals: Safe postop and recovery. Pain control. Condition: Good - Instructions Diet, Activity, Other Instructions: Physical activity Resume your normal everyday activity as tolerated no heavy lifting or exercise until seen by your surgeon. You may walk unlimited richelle of and climb stairs. You may resume driving the car when you feel safe and comfortable behind the wheel. No sexual activity as instructed. Wound care If you have a bandage, leave it on, and keep dry for 48-72 hours. After that time discard the outer bandage. If they are tapes on the skin under the out of bandage leave them in place. They will peel off in the next 7 to 10 days. Do Not Peel them off. You may shower the day after surgery. If there are tapes present on the skin, you may shower over them. Diet There are no dietary restrictions. Eat healthy, high-fiber foods. Drink 6 to 8 glasses of liquid each day. This will assist in keeping your bowels are regular. Pain management You may take Tylenol or acetaminophen or Ibuprofen (for example, Motrin, Advil etc.) from my pain prescription medication is ordered should be taken as prescribed for moderate to severe pain. Call MD for any of the following: Severe pain not relieved by medication Fever of 101 or higher Excessive bleeding or drainage on dressing Inability to urinate Referrals: Yordan Corrales MD [Staff Physician] - Disposition: HOME - Home Medications Comprehensive Discharge Medication List: Ambulatory Orders Vits96/Iron Fum/Folic [ Tablet] 1 each PO DAILY 09/07/19 Prescription Drug Monitoring Program (I-STOP) results: I-STOP not reviewed
[2019-09-09 21:42] VITALS: PULSE 55; TEMP 98.6
[2019-09-09] MEDS ORDERED: SENNOSIDES/DOCUSATE COMBO (SENNA PLUS) TABLET (UD) PO PRN (22:00)
[2019-09-10] MEDS: SIMETHICONE 80 MG TAB.CHEW (FP) PO PRN ×3 (01:52→10:26)
[2019-09-10] MEDS: IBUPROFEN 600 MG TABLET (FP) PO PRN ×3 (01:53→10:26)
[2019-09-10] MEDS: ACETAMINOPHEN 325 MG TABLET (FP) PO PRN ×3 (01:53→10:26)
--- NOTE | 2019-09-10 07:52 | PN ---
Progress Note (short form) - Note Progress Note: pod 3 s/p repeat c/s. no c/o CBC, BMP 09/08/19 08:15 Last Vital Signs Temp Pulse Resp BP Pulse Ox 98.6 F 55 L 18 145/74 98 09/09/19 21:40 09/09/19 21:40 09/09/19 21:40 09/09/19 21:40 09/07/19 11:15 abdomen soft, no distension , no cva incision dry, clean ,no calf tenderness plan ambulate , cbc d/c home, follow up office 1 week
[2019-09-10 08:18] LABS: BASO % 0.3 % (0-2.0); HEMATOCRIT 28.9 % (32.4-45.2); HEMOGLOBIN 9.6 GM/dL (10.7-15.3); MCH 27.4 pg (25.7-33.7); MCHC 33.3 g/dl (32.0-36.0); MEAN CELL VOLUME 82.2 fl (80-96); MEAN PLT VOLUME 8.5 fl (7.5-11.1); MONO % 7.7 % (3.8-10.2); PLATELET COUNT 270 K/MM3 (134-434); RBC 3.52 M/mm3 (3.60-5.2); RDW 13.3 % (11.6-15.6); WHITE BLOOD COUNT 5.9 K/mm3 (4.0-10.0)
[2019-09-10] MEDS: ENOXAPARIN NA (PORCINE) 40 MG/0.4 ML DISP.SYRIN SQ SCH (10:14)
[2019-09-10 10:50] VITALS: BP 116/61
--- NOTE | 2019-09-15 12:31 | PATH ---
Surgical Pathology Report Patient Name: GREG HYLTON [facility]. Rec. #: [id number] /Age/Gender: 1990 (Age: 29) / F Account: [id number] Location: [facility] OBS/SECURITY SYSTEM INSTALLER Taken: 09/07/2019 Received: 09/09/2019 Reported: 09/15/2019 Physicians: Yordan Corrales M.D. Specimen(s) Received PLACENTA Clinical History , 40 weeks for repeat Final Diagnosis PLACENTA: THIRD TRIMESTER PLACENTA WITH MILDLY INCREASED PIGMENT LADEN MACROPHAGES WITHIN THE CHORIOAMNIONIC MEMBRANES, CONSISTENT WITH MECONIUM STAINING. TRIVASCULAR CORD. Electronically Signed Tosin Awad M.D. Gross Description The specimen is received fresh labeled placenta and is a 486 gram, 18.0 x 17.0 x 3.3 cm. placenta with attached membranes and umbilical cord. The attached membranes are veloz, translucent with focal opacities and insert marginally. The umbilical cord measures 39 cm. in length and averages 1.1 cm. in diameter. The cord inserts eccentrically, 5.5 cm. to the nearest margin. No true knots or strictures are identified. Cut surface of the umbilical cord reveals 3 vessels. The surface is hicks-blue with minimal fibrin deposition and appropriate caliber vessels. The maternal surface is red-brown with focal defects. Sectioning reveals red-brown, spongy parenchyma. No lesions are identified. Records Clerk sections are submitted in three cassettes as follows: 1- membrane rolls and umbilical cord; 2-3- full thickness sections of placenta. /09/13/2019 saudi/09/13/2019
== END 2019-09-10 14:35 | disposition home or self-care (01) | DRG 540 ==
LOC: JLDR 07:30 → J3W 11:32
PROVIDERS: ADMIT Obstetrics & Gynecology; ATTEND Obstetrics & Gynecology
PROC: 10D00Z1 Extraction of Products of Conception, Low, Open Approach (ICD-10-PCS; principal; 2019-09-07)
DX: O34.211 Maternal care for low transverse scar from previous cesarean delivery (principal); N85.8 Other specified noninflammatory disorders of uterus; Z3A.39 39 weeks gestation of pregnancy; Z37.0 Single live birth
CPT/HCPCS: 36415; 85025; 88307-TC